=== PATIENT | male | born 1980 | race African-American/Black ===

== ENCOUNTER 2020-02-27 08:30 | Inpatient (IN) | payer MEDICAID ==
[~2020-02-27] VITALS: Ht 188 cm; Wt 86.2 kg
[2020-02-27 08:35] VITALS: BP 107/81
[2020-02-27] MEDS ORDERED: EPINEPHrine 1mg/1ml Amp ONE ×2 (08:35→08:54)
[2020-02-27] MEDS ORDERED: Solu-MEDROL 125mg Inj ONE (08:35)
[2020-02-27] MEDS ORDERED: Albuterol/Ipratropium 3ml neb ONE ×2 (08:37→08:55)
--- NOTE | 2020-02-27 08:59 | Emergency Room Report ---
History of Present Illness General Chief Complaint: Dyspnea/Respdistress Source: EMS Present Illness HPI Disclaimer: Please note that this report is being documented using DRAGON technology. This can lead to erroneous entry secondary to incorrect interpretation by the dictating instrument. HPI: Ambrocio Brooks unknown age presents for respiratory distress. EMS called to bus as he was having shortness of breath. Patient signified he was having allergic reaction. Also had an albuterol inhaler with him. EMS noted wheezing, diaphoresis, tachycardia concern for anaphylaxis they gave intramuscular epi 0.5 mg and breathing treatments en route. Mild improvement. Presents respiratory extremis. Cannot obtain any further information. PMH: Unable to obtain PSH: Unable to obtain Allergies: Unable to obtain Social Hx: Unable to obtain Allergies: Coded Allergies: UNABLE TO ASSESS (Unverified , 02/27/20) COVID-19 Screening Contact w/high risk pt: No Experienced COVID-19 symptoms?: No COVID-19 Testing performed DIRECTOR HOME HEALTH: No Nursing Documentation-PMH Past Medical History: No Stated History Review of Systems All Other Systems: limited - Due to clinical condition Physical Exam Vital Signs Date Time Temp Pulse Resp B/P (MAP) Pulse Ox O2 Delivery O2 Flow Rate FiO2 02/27/20 08:32 95.0 130 30 107/81 (90) 93 Bi-pap General: Awake, respiratory extremis HEENT: NC/AT. EOMI. Cardiovascular: Tachycardic Resp: Increased work of breathing. Profound wheezing bilaterally. Abdomen: Abdomen is soft, nondistended. Nontender Skin: Diffuse urticaria over extremities, lower back, buttocks MSK: Normal tone and bulk. Moving all extremities. No obvious deformity. Neuro: Awake. GCS 8 Procedures Critical Care Time Critical Care Time Total critical care time: Approximately 45 minutes Due to a high probability of clinically significant, life threatening deterioration, the patient required the highest level of preparedness to intervene emergently and I personally spent this critical care time directly and personally managing the patient. This critical care time included obtaining a history, examining the patient, pulse oximetry, ordering and reviewing studies, ordering treatments, evaluating response to treatment and updating management plan as needed, frequent reassessment and discussion with other providers as well as arranging for ultimate disposition. This critical to care time was performed to assess and manage the high probability of life-threatening deterioration that could result in multiorgan failure. This critical care time is separate from the separately billable procedures and treating other patients. Intubation Intubation : Consent: Emergent Intubation Method: orotracheal Tube Size (cm): 7.5 Medications: Etomidate, Rocuronium Breath Sounds after Intubation: equal Intubation Complications: no complications Post Intubation Xray: Yes Attempts: One Patient Tolerated: Well Complications: None Medical Decision Making Diagnostic Impression: Primary Impression: Anaphylactic reaction Additional Impression: Respiratory distress ER Course Ambrocio Brooks presents in respiratory extremis. Possible anaphylactic reaction, PE, overdose. Patient given additional intramuscular epinephrine, Solu-Medrol and continued breathing treatments. He was then started on epinephrine drip. Patient had significant improvement. He was then awake and alert. He became agitated, ripped off his nebulizer, pulled out his IV. He attempted to leave. He was persuaded to stay and then again deteriorated. Wheezing intensified and increased work of breathing. Restarted epinephrine drip though the patient did not significantly improve. Intubated under direct visualization and placed on ventilator. Oxygenation improved to 100%. Continue to receive nebulizers through ET tube. Lactic acid elevated and receiving sepsis fluids. No consolidation visible on x-ray. Admitted to ICU for further care to panel physician, Dr. Robertson EKG Diagnostic Results Troponin ordered: Yes When was troponin ordered?: Feb 27, 2020 EKG Time: 10:18 Rate: tachycardiac Rhythm: NSR Other Impression Sinus tachycardia, normal axis, normal intervals, QTC 425 ms, somewhat peaked T waves. Rhythm Strip Diag. Results Rhythm Strip Time: 10:18 EP Interpretation: yes Rate: 120s Rhythm: NSR, no PVC's, no ectopy Chest X-Ray Diagnostic Results Chest X-Ray Diagnostic Results : Chest X-Ray Ordered: Yes # of Views/Limited/Complete: 1 View Indication: Shortness of Breath Interpretation: no consolidation, no effusion, no pneumothorax, other - Endotracheal tube above the stephen Impression: Other - Satisfactory endotracheal tube placement Electronically Signed by: Electronically signed by Dr. Clifford Masterson MD Last Vital Signs Date Time Temp Pulse Resp B/P (MAP) Pulse Ox O2 Delivery O2 Flow Rate FiO2 02/27/20 08:32 95.0 130 30 107/81 (90) 93 Bi-pap Disposition: ADMITTED INPATIENT Condition: Critical Scripts Unable to Obtain Active Prescriptions or Reported Meds Clifford Masterson MD Feb 27, 2020 08:59
[2020-02-27 09:09] LABS: BASOPHILS % (AUTO) 1.3 % (0.0-2.0); EOSINOPHILS % (AUTO) 0.1 % (0.0-3.0); HEMATOCRIT 54.8 % (42.0-52.0); HEMOGLOBIN 16.4 G/DL (14.2-18.0); LYMPHOCYTES % (AUTO) 49.4 % (20.0-45.0); MEAN CORPUSCULAR VOLUME 95 FL (80-99); MONOCYTES % (AUTO) 3.2 % (1.0-10.0); PLATELET COUNT 334 K/UL (150-450); RED BLOOD COUNT 5.76 M/UL (4.70-6.10); RED CELL DISTRIBUTION WIDTH 14.5 % (11.6-14.8); WHITE BLOOD COUNT 7.9 K/UL (4.8-10.8)
[2020-02-27 09:30] LABS: ALANINE AMINOTRANSFERASE 61 U/L (12-78); ALBUMIN 3.5 G/DL (3.4-5.0); ALBUMIN/GLOBULIN RATIO 0.6 (1.0-2.7); ALKALINE PHOSPHATASE 77 U/L (46-116); ASPARTATE AMINO TRANSFERASE 60 U/L (15-37); BILIRUBIN,TOTAL 0.4 MG/DL (0.2-1.0); BLOOD UREA NITROGEN 21 mg/dL (7-18); CALCIUM 8.6 MG/DL (8.5-10.1); CARBON DIOXIDE 24 MMOL/L (21-32); CKMB 13.8 NG/ML (0.0-3.6); CREATINE KINASE 859 U/L (26-308); CREATININE 1.3 MG/DL (0.55-1.30)
[2020-02-27] MEDS ORDERED: Sodium Chloride 2,600 ML IVLG ONE (09:45)
[2020-02-27] MEDS: propofoL 1,000mg/100ml 100 ML IV SCH ×3 (09:48→15:00)
[2020-02-27 10:00] LABS: CHLORIDE 97 MMOL/L (98-107); POTASSIUM 3.9 MMOL/L (3.5-5.1); SODIUM 132 MMOL/L (136-145)
[2020-02-27] MEDS ORDERED: EPINEPHrine 1mg/1ml Amp 1 MG in D5W 249 ML IV SCH (10:00)
[2020-02-27] MEDS ORDERED: Solu-MEDROL 125mg Inj IVP ONE (10:00)
[2020-02-27] MEDS ORDERED: EPINEPHrine 1mg/1ml Amp IM ONE ×2 (10:00)
[2020-02-27 10:03] LABS: ANION GAP 11 mmol/L (5-15)
[2020-02-27 10:46] LABS: APPEARANCE,URINE CLEAR; BILIRUBIN, URINE NEGATIVE (NEGATIVE); GLUCOSE, URINE (UA) 4+ (NEGATIVE); KETONES,URINE NEGATIVE (NEGATIVE); LEUKOCYTE ESTERASE ,URINE 1+ (NEGATIVE); PH,URINE 6 (4.5-8.0); PROTEIN,URINE 3+ (NEGATIVE); UROBILINOGEN,URINE NORMAL MG/DL (0.0-1.0)
[2020-02-27 10:55] LABS: NITRITE,URINE NEGATIVE (NEGATIVE)
[2020-02-27 10:56] LABS: COLOR,URINE PINK
[2020-02-27] MEDS ORDERED: EPINEPHRINE IV SCH (11:00)
[2020-02-27] MEDS ORDERED: SODIUM CHLORIDE IV SCH (11:00)
[2020-02-27] MEDS: Heparin 5000 units/ml inj SUBQ SCH ×2 (14:00→22:00)
--- NOTE | 2020-02-27 15:04 | Diagnostic Imaging Report ---
Indication: Respiratory failure Technique: XRAY Chest 1v Comparison: None Findings: Endotracheal tube tip below level of clavicles, approximately 4.5 cm above the stephen. Heart size within normal limits. Mediastinal contours are sharp. There is no focal versus consolidation. No pleural effusion, pneumothorax or radiographic evidence of pulmonary edema. No acute osseous abnormality. IMPRESSION: Endotracheal tube tip below the level of clavicles, approximately 4.5 cm above the stephen. No focal airspace consolidation, pleural effusion or pneumothorax.
--- NOTE | 2020-02-27 15:06 | Diagnostic Imaging Report ---
Indication: Respiratory failure Technique: XRAY Chest 1v Comparison: Earlier the same day (02/27/2028, 9:19) FINDINGS/IMPRESSION: Endotracheal tube is been retracted slightly with the tip still remains the level of the clavicles, approximately 5.5 cm above the stephen. Heart size and mediastinal contours within normal limits and stable compared to the prior exam. No focal consolidation, pleural effusion or pneumothorax.
[2020-02-27] MEDS: Albuterol/Ipratropium 3ml neb IN-LINE SCH ×3 (15:36→22:35)
--- NOTE | 2020-02-27 15:57 | Diagnostic Imaging Report ---
Indication: Respiratory failure Technique: XRAY Chest 1v Comparison: Earlier the same day (02/27/2020, 12:56) FINDINGS/IMPRESSION: Endotracheal tube has been retracted slightly with the tip just at the level of the inferior border of the clavicles, approximately 6.7 cm above the stephen. Heart size and mediastinal contours within normal limits and stable compared to the prior exam. No focal consolidation, pleural effusion or pneumothorax.
[2020-02-27] MEDS ORDERED: Norepinephrine 4mg/NS Premix 250 ML IV SCH (16:15)
[2020-02-27] MEDS: Azithromycin 500 MG in D5W 275 ML IV SCH (16:27)
[2020-02-27 17:10] LABS: ALBUMIN 2.7 G/DL (3.4-5.0); ALBUMIN/GLOBULIN RATIO 0.6 (1.0-2.7); BILIRUBIN,TOTAL 0.3 MG/DL (0.2-1.0); CALCIUM 6.8 MG/DL (8.5-10.1); CREATININE 1.8 MG/DL (0.55-1.30)
[2020-02-27 17:30] LABS: POTASSIUM 5.2 MMOL/L (3.5-5.1)
--- NOTE | 2020-02-27 17:59 | Diagnostic Imaging Report ---
EXAM: XR Chest, 1 View CLINICAL HISTORY: TUBE PLCMT TECHNIQUE: Frontal view of the chest. COMPARISON: Same date 4 hours prior FINDINGS: Lungs: No acute cardiopulmonary disease. Pleural space: Unremarkable. No pneumothorax. Heart: Unremarkable. No cardiomegaly. Mediastinum: Unremarkable. Bones/joints: No acute abnormality Tubes, lines and devices: ETT 3.4 cm above stephen. IMPRESSION: 1. ETT 3.4 cm above stephen. 2. No acute cardiopulmonary disease.
[2020-02-27] MEDS: Solu-MEDROL 125mg Inj IVP SCH (19:06)
[2020-02-27] MEDS: Dyna-Hex 2% Top Sol 2oz TOPIC SCH (19:38)
--- NOTE | 2020-02-27 19:48 | Emergency Room Report ---
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 COVID-19 Screening: Negative COVID-19 Nursing Documentation-[facility] Past Medical History: No Stated History Physical Exam Vital Signs Date Time Temp Pulse Resp B/P (MAP) Pulse Ox O2 Delivery O2 Flow Rate FiO2 02/27/20 08:32 95.0 130 30 107/81 (90) 93 Bi-pap 02/27/20 08:45 100 02/27/20 19:25 4.0 Procedures Central Line Central Line : Consent: Emergent Central Line Lumen: triple Maximal Sterile Barrier Tech: yes cap, yes mask, yes sterile gown, yes sterile gloves, yes large sterile sheet, yes hand hygiene, yes chlorhexidine prep No Max Barrier Tech Because: emergency insertion Central Line Postion: femoral (R) US Guided Line?: Yes Vessel visualized with U/S: Right Femoral Vein Ultrasound Findings: Collapsible Vessel, Vessel Patent, Color flow present, Visualize vessel puncture Complications: none Central Line Post Position: sutured, good blood return Attempts: One Patient Tolerated: Well Complications: None Medical Decision Making Diagnostic Impression: Primary Impression: Anaphylactic reaction Additional Impression: Respiratory distress Last Vital Signs Date Time Temp Pulse Resp B/P (MAP) Pulse Ox O2 Delivery O2 Flow Rate FiO2 02/27/20 19:26 95 18 100 Nasal Cannula 4.0 36 92 16 98 02/27/20 16:48 102/46 02/27/20 08:35 95.0 Disposition: ADMITTED INPATIENT Condition: Critical Scripts Unable to Obtain Active Prescriptions or Reported Meds Referrals: NOT CHOSEN IPA/,REFERRING (PCP) Victor Manuel Hardy M.D. Feb 27, 2020 19:48
--- NOTE | 2020-02-27 21:30 | History and Physical Report ---
DATE OF ADMISSION: 02/27/2020 REASON FOR ADMISSION: Respiratory failure. HISTORY OF PRESENT ILLNESS: This male was on the bus, developed shortness of breath. He stated that he was having an allergic reaction. He uses albuterol inhaler, but did not improve. Paramedics were called. He was given epinephrine in the field with some improvement, but the patient was unable to give any information due to his respiratory distress, and he was initially named as a Ambrocio Brooks. In the emergency room, he was given intravenous steroids and bronchodilators and BiPAP. He initially improved, but subsequently became agitated and attempted to leave the hospital, confused. Later, he required intubation and mechanical ventilation. He was admitted to the intensive care unit. He was also sedated. Subsequently, he was noted to have his endotracheal tube over 6 cm above the stephen and orders were given to correct that positioning. PAST MEDICAL HISTORY: Otherwise unknown. ALLERGIES: Unknown. MEDICATIONS: Unknown other than albuterol. PHYSICAL EXAMINATION: GENERAL: Moderately obese. Orally intubated. Presently sedated, but quite agitated when off his sedation. VITAL SIGNS: Blood pressure 107/81, pulse 130, respirations 30, afebrile. LUNGS: Bilateral breath sounds with expiratory wheezing. HEENT: Thin secretions from the endotracheal tube. SKIN: No skin lesions. HEART: Regular rhythm. Rapid rate. Normal S1, S2. ABDOMEN: Soft and obese. EXTREMITIES: No edema. He moves all extremities. LABORATORY DATA: EKG with sinus tachycardia, no acute abnormalities. Chest x-ray revealed no infiltrate. Endotracheal tube as described above. Lactic acid is 8.7. BUN 21, creatinine 1.3. Sodium 132, potassium 3.9. Troponin #1 is 0.005. White count 7.9, hemoglobin 16.4, and urine tox screen is positive for amphetamines. ABG initially was 7.019, 115, 514 IMPRESSION: 1. Respiratory failure. 2. Acute bronchospasm. 3. Anaphylactic reaction. 4. Amphetamine intoxication. 5. Lactic acidosis. 6. Sinus tachycardia. 7. Acute myocardial ischemia. 8. Hypoxia. 9. Acute respiratory acidosis. PLAN: 1. Ventilator support. 2. Hold antimicrobials. 3. Bronchodilators. 4. Steroids. 5. DVT prophylaxis. 6. IV fluids. 7. Serial lactic acid and ABG studies. 8. Follow up troponin level. 9. Withdrawal precautions. Jh Robertson M.D. DR: JAMI JOB#: [id number] CC:
[2020-02-27] MEDS ORDERED: Rocuronium Bromide 50mg/5ml Inj IV ONE (22:02)
[2020-02-27] MEDS ORDERED: Etomidate 40mg/20ml Inj IV ONE (22:02)
[2020-02-28] VITALS (8 sets, daily range): BP systolic 100–162; BP diastolic 61–106
[2020-02-28] MEDS: Solu-MEDROL 125mg Inj IVP SCH ×3 (00:08→12:06)
[2020-02-28] MEDS: Albuterol/Ipratropium 3ml neb IN-LINE SCH ×6 (02:51→23:00)
[2020-02-28 04:51] LABS: HEMATOCRIT 45.3 % (42.0-52.0); HEMOGLOBIN 14.4 G/DL (14.2-18.0); MEAN CORPUSCULAR VOLUME 91 FL (80-99); PLATELET COUNT 276 K/UL (150-450); RED BLOOD COUNT 4.99 M/UL (4.70-6.10); RED CELL DISTRIBUTION WIDTH 14.2 % (11.6-14.8); WHITE BLOOD COUNT 9.3 K/UL (4.8-10.8)
[2020-02-28 05:04] LABS: ALANINE AMINOTRANSFERASE 55 U/L (12-78); ALBUMIN 2.8 G/DL (3.4-5.0); ALBUMIN/GLOBULIN RATIO 0.6 (1.0-2.7); ALKALINE PHOSPHATASE 57 U/L (46-116); ANION GAP 5 mmol/L (5-15); ASPARTATE AMINO TRANSFERASE 57 U/L (15-37); BILIRUBIN,TOTAL 0.4 MG/DL (0.2-1.0); BLOOD UREA NITROGEN 21 mg/dL (7-18); CALCIUM 7.7 MG/DL (8.5-10.1); CARBON DIOXIDE 28 MMOL/L (21-32); CHLORIDE 106 MMOL/L (98-107); CREATINE KINASE 760 U/L (26-308); CREATININE 1.3 MG/DL (0.55-1.30); POTASSIUM 4.4 MMOL/L (3.5-5.1); SODIUM 138 MMOL/L (136-145)
[2020-02-28] MEDS: Heparin 5000 units/ml inj SUBQ SCH ×3 (06:00→21:05)
--- NOTE | 2020-02-28 08:31 | Diagnostic Imaging Report ---
EXAM: XR Chest, 1 View CLINICAL HISTORY: COPD TECHNIQUE: Frontal view of the chest. COMPARISON: No relevant prior studies available. FINDINGS: Lungs: Unremarkable. No consolidation. Pleural space: Unremarkable. No pneumothorax. Heart: Unremarkable. No cardiomegaly. Mediastinum: Unremarkable. Bones/joints: Unremarkable. IMPRESSION: No focal infiltrate.
--- NOTE | 2020-02-28 09:29 | Pulmonology Progress Note ---
Subjective Allergies: Coded Allergies: UNABLE TO ASSESS (Unverified , 02/27/20) Subjective care noted self extubated off oxygen at present Objective Last 24 Hour Vital Signs Date Time Temp Pulse Resp B/P (MAP) Pulse Ox O2 Delivery O2 Flow Rate FiO2 02/28/20 09:00 99.1 112 23 132/69 (90) 99 02/28/20 08:00 94 17 142/72 (95) 98 02/28/20 07:32 79 14 100 Room Air 21 75 14 99 02/28/20 07:20 99 Room Air 21 02/28/20 07:00 98 19 132/73 (92) 99 02/28/20 04:00 Mechanical Ventilator 02/28/20 03:47 76 18 100 Nasal Cannula 3.0 32 72 16 97 02/28/20 00:00 Mechanical Ventilator 02/27/20 23:02 79 18 100 Nasal Cannula 3.0 32 75 16 97 02/27/20 20:00 Mechanical Ventilator 02/27/20 19:26 95 18 100 Nasal Cannula 4.0 36 92 16 98 02/27/20 19:25 98 Nasal Cannula 4.0 36 02/27/20 17:00 113 24 60 02/27/20 16:48 50 102/46 Mechanical Ventilator 02/27/20 16:15 113/79 02/27/20 16:00 Mechanical Ventilator 02/27/20 15:48 22 80/48 Mechanical Ventilator 02/27/20 15:46 126 24 100 Mechanical Ventilator 60 129 16 60 02/27/20 15:00 40 92/52 Mechanical Ventilator 02/27/20 14:48 35 104/51 Mechanical Ventilator 02/27/20 14:10 80 02/27/20 13:00 132 24 100 02/27/20 12:41 100 02/27/20 11:45 147 27 100 02/27/20 09:48 22 135/50 Mechanical Ventilator Intake and Output 02/27/20 02/28/20 19:00 07:00 Intake Total 1076.710 ml 2300 ml Output Total 515 ml 3850 ml Balance 561.710 ml -1550 ml IV Total 1076.710 ml 2300 ml Output Urine Total 515 ml 3850 ml Objective WDWN NAD clear breath sounds bilaterally without rhonchi or wheeze [id number] without MRG NABS nontender no HSM no CCE nonfocal Microbiology Date/Time Source Procedure Growth Status 11/20/20 11:05 Nasopharynx SARS-CoV-2 RdRp Gene Assay - Final Complete Laboratory Tests 02/27/20 10:08: Arterial Blood pH 7.019*L, Arterial Blood Partial Pressure CO2 115.8*H, Arterial Blood Partial Pressure O2 514.5H, Arterial Blood HCO3 29.2H, Arterial Blood Oxygen Saturation 99.5, Arterial Blood Base Excess -5.9L, Mega Test Positive 02/27/20 10:35: Urine Color [place], Urine Appearance Clear, Urine pH 6, Urine Specific [place] 1.020, Urine Protein 3+H, Urine Glucose (UA) 4+H, Urine Ketones Negative, Urine Blood 4+H, Urine Nitrite Negative, Urine Bilirubin Negative, Urine Urobilinogen Normal, Urine Leukocyte Esterase 1+H, Urine RBC 5-10H, Urine WBC 0-2, Urine Squamous Epithelial Cells Occasional, Urine Bacteria Few, Lactic Acid Level 2.90H, Triglycerides Level 29L, Urine Opiates Screen Negative, Urine Barbiturates Screen Negative, Phencyclidine (PCP) Screen Negative, Urine Amphetamines Screen PositiveH, Urine Benzodiazepines Screen Negative, Urine Cocaine Screen Negative, Urine Marijuana (THC) Screen Negative 02/27/20 13:41: Arterial Blood pH 7.061*L, Arterial Blood Partial Pressure CO2 93.3*H, Arterial Blood Partial Pressure O2 630.2H, Arterial Blood HCO3 25.9, Arterial Blood Oxygen Saturation 99.1, Arterial Blood Base Excess -7.5L, Mega Test Positive 02/27/20 16:20: Urine Opiates Screen Negative, Urine Barbiturates Screen Negative, Phencyclidine (PCP) Screen Negative, Urine Amphetamines Screen PositiveH, Urine Benzodiazepines Screen Negative, Urine Cocaine Screen Negative, Urine Marijuana (THC) Screen PositiveH 02/27/20 16:30: Sodium Level 137, Potassium Level 5.2H, Chloride Level 105, Carbon Dioxide Level 25, Anion Gap 7, Blood Urea Nitrogen 29H, Creatinine 1.8H, Estimat Glomerular Filtration Rate 49.7, Glucose Level 139H, Lactic Acid Level 3.80H, Calcium Level 6.8#L, Magnesium Level 1.6L, Total Bilirubin 0.3, Aspartate Amino Transf (AST/SGOT) 66H, Alanine Aminotransferase (ALT/SGPT) 52, Alkaline Phosphatase 63, Troponin I 0.556H, Total Protein 7.0, Albumin 2.7L, Globulin 4.3, Albumin/Globulin Ratio 0.6L, Triglycerides Level 41, Thyroid Stimulating Hormone (TSH) 0.162L 02/27/20 18:25: Lactic Acid Level 3.70H 02/27/20 18:55: Arterial Blood pH 7.338L, Arterial Blood Partial Pressure CO2 37.4, Arterial B lood Partial Pressure O2 130.9H, Arterial Blood HCO3 19.6L, Arterial Blood Oxygen Saturation 98.2, Arterial Blood Base Excess -5.5L, Mega Test Positive 02/28/20 04:00: Sodium Level 138, Potassium Level 4.4, Chloride Level 106, Carbon Dioxide Level 28, Anion Gap 5, Blood Urea Nitrogen 21H, Creatinine 1.3, Estimat Glomerular Filtration Rate > 60, Glucose Level 124H, Lactic Acid Level 3.70H, Calcium Level 7.7L, Total Bilirubin 0.4, Aspartate Amino Transf (AST/SGOT) 57H, Alanine Aminotransferase (ALT/SGPT) 55, Alkaline Phosphatase 57, Troponin I 0.316H, Total Protein 7.3, Albumin 2.8L, Globulin 4.5, Albumin/Globulin Ratio 0.6L, White Blood Count 9.3, Red Blood Count 4.99, Hemoglobin 14.4, Hematocrit 45.3, Mean Corpuscular Volume 91, Mean Corpuscular Hemoglobin 28.9, Mean Corpuscular Hemoglobin Concent 31.8L, Red Cell Distribution Width 14.2, Platelet Count 276, Mean Platelet Volume 6.3L, Neutrophils (%) (Auto) , Lymphocytes (%) (Auto) , Monocytes (%) (Auto) , Eosinophils (%) (Auto) , Basophils (%) (Auto) , Differential Total Cells Counted 100, Neutrophils % (Manual) 93H, Lymphocytes % (Manual) 7L, Monocytes % (Manual) 0L, Eosinophils % (Manual) 0, Basophils % (Manual) 0, Band Neutrophils 0, Platelet Estimate Adequate, Platelet Morphology Normal, Red Blood Cell Morphology Normal, Anisocytosis , Total Creatine Kinase 760H Current Medications Medications (Trade) Dose Ordered Sig/Tylor Route PRN Reason Start Time Stop Time Status Last Admin Dose Admin Albuterol/ Ipratropium (Albuterol/ Ipratropium) 3 ml Q4HRT IN-LINE 02/27/20 15:00 03/03/20 14:59 02/28/20 07:22 Azithromycin 500 mg/Dextrose 275 ml @ 275 mls/hr Q24HRS IV 02/27/20 14:00 03/04/20 14:59 02/27/20 16:27 Chlorhexidine Gluconate (Esther-Hex 2%) 1 applic DAILY@2000 TOPIC 02/27/20 20:00 05/27/20 19:59 02/27/20 19:38 Heparin Sodium (Porcine) (Heparin 5000 units/ml) 5,000 units EVERY 8 HOURS SUBQ 02/27/20 14:00 04/12/20 13:59 Methylprednisolone Sodium Succinate (Solu-MEDROL) 60 mg EVERY 6 HOURS IVP 02/27/20 18:00 05/27/20 17:59 02/28/20 06:14 Norepinephrine Bitartrate 250 ml @ 0 mls/hr Q24H IV 02/27/20 16:15 03/01/20 16:14 Ondansetron HCl (Zofran) 4 mg Q6H PRN IVP Nausea & Vomiting 02/27/20 12:45 03/28/20 12:44 Sodium Chloride 1,000 ml @ 175 mls/hr Q5H43M IV 02/27/20 12:45 03/28/20 12:44 02/28/20 08:00 Assessment/Plan Assessment/Plan IMPRESSION: 1. Respiratory failure. 2. Acute bronchospasm. 3. Anaphylactic reaction. 4. Amphetamine intoxication. PLAN doing well presently off oxygen CXR clear will sign off please call if any issues Leo Alford MD Feb 28, 2020 09:29
[2020-02-28] MEDS ORDERED: NS 275ml ONE (13:40)
[2020-02-28] MEDS ORDERED: Tubing IV Secondary IV ONE (13:40)
[2020-02-28] MEDS: Azithromycin 500 MG in D5W 275 ML IV SCH (13:53)
--- NOTE | 2020-02-28 15:30 | Consultation ---
DATE OF CONSULTATION: 02/28/2020 REFERRING PHYSICIAN: Jh Robertson M.D. REASON FOR CONSULTATION: Rhabdomyolysis, metabolic acidosis. HISTORY OF PRESENT ILLNESS: The patient presented with an anaphylactic reaction, respiratory distress, placed on a ventilator. He had elevated CPK. He apparently ate a star fruit, which is known to cause anaphylaxis, and he had an abnormal drug screen with positive methamphetamines, which he admits to use, and the patient has elevated CK , electrolytes normal. There was elevated lactic acid. REVIEW OF SYSTEMS: Negative other than he may have HIV, but he does not know for sure. PHYSICAL EXAMINATION: GENERAL: He is alert, well developed, currently in no acute distress. VITAL SIGNS: Temperature 99.1, pulse 112, blood pressure 132/69, sat 99. HEAD, EYES, EARS, NOSE, AND THROAT: Unremarkable. LUNGS: Clear. HEART: Regular rhythm. ABDOMEN: Soft without organomegaly. EXTREMITIES: No edema. IMPRESSION: 1. Anaphylactic reaction. 2. Bronchospasm secondary to above, improved. 3. Respiratory acidosis. 4. Lactic acidosis. 5. Concern for HIV. 6. Rhabdomyolysis. PLAN: The patient is improving with the current treatment and needs to be well hydrated. Orders were reviewed. His renal function so far is stable. Awais Moser M.D. DR: MARISSA JOB#: [id number] CC:
--- NOTE | 2020-02-28 19:48 | Cardiology Progress Note ---
Subjective DATE OF SERVICE: Feb 28, 2020 Self extubated. No respiratory distress or hypoxia. Still with elevated lactic acid levels. Now says he may have HIV, but not sure. Urine tox screen positive for amphetamines. Objective Last 24 Hour Vital Signs Date Time Temp Pulse Resp B/P (MAP) Pulse Ox O2 Delivery O2 Flow Rate FiO2 02/28/20 16:44 105 18 100 Room Air 21 101 20 97 02/28/20 16:00 99.2 113 21 162/106 (124) 97 02/28/20 12:00 Room Air 02/28/20 12:00 98.7 61 20 100/65 (77) 97 02/28/20 11:07 89 02/28/20 11:00 114 24 153/69 (97) 98 02/28/20 10:00 110 21 147/61 (89) 99 02/28/20 09:00 99.1 112 23 132/69 (90) 99 02/28/20 08:00 94 17 142/72 (95) 98 02/28/20 08:00 Room Air 02/28/20 07:32 79 14 100 Room Air 21 75 14 99 02/28/20 07:20 99 Room Air 21 02/28/20 07:00 98 19 132/73 (92) 99 02/28/20 04:00 Mechanical Ventilator 02/28/20 03:47 76 18 100 Nasal Cannula 3.0 32 72 16 97 02/28/20 00:00 Mechanical Ventilator 02/27/20 23:02 79 18 100 Nasal Cannula 3.0 32 75 16 97 02/27/20 20:00 Mechanical Ventilator HEENT: normal ENT inspection RHYTHM: NSR LUNGS: lungs clear bilaterally CARDIAC: normal rate, regular rhythm, normal S1 and S2 ABDOMEN: normal bowel sounds, non tender, soft, no organomegaly EXTREMITIES: normal range of motion, non-tender, other - no skin lesions Laboratory Tests Test 02/28/20 04:00 02/28/20 13:30 02/28/20 15:18 White Blood Count 9.3 K/UL (4.8-10.8) Red Blood Count 4.99 M/UL (4.70-6.10) Hemoglobin 14.4 G/DL (14.2-18.0) Hematocrit 45.3 % (42.0-52.0) Mean Corpuscular Volume 91 FL (80-99) Mean Corpuscular Hemoglobin 28.9 PG (27.0-31.0) Mean Corpuscular Hemoglobin Concent 31.8 G/DL (32.0-36.0) L Red Cell Distribution Width 14.2 % (11.6-14.8) Platelet Count 276 K/UL (150-450) Mean Platelet Volume 6.3 FL (6.5-10.1) L Neutrophils (%) (Auto) % (45.0-75.0) Lymphocytes (%) (Auto) % (20.0-45.0) Monocytes (%) (Auto) % (1.0-10.0) Eosinophils (%) (Auto) % (0.0-3.0) Basophils (%) (Auto) % (0.0-2.0) Differential Total Cells Counted 100 Neutrophils % (Manual) 93 % (45-75) H Lymphocytes % (Manual) 7 % (20-45) L Monocytes % (Manual) 0 % (1-10) L Eosinophils % (Manual) 0 % (0-3) Basophils % (Manual) 0 % (0-2) Band Neutrophils 0 % (0-8) Platelet Estimate Adequate Platelet Morphology Normal Red Blood Cell Morphology Normal Anisocytosis Sodium Level 138 MMOL/L (136-145) Potassium Level 4.4 MMOL/L (3.5-5.1) Chloride Level 106 MMOL/L (98-107) Carbon Dioxide Level 28 MMOL/L (21-32) Anion Gap 5 mmol/L (5-15) Blood Urea Nitrogen 21 mg/dL (7-18) H Creatinine 1.3 MG/DL (0.55-1.30) Estimat Glomerular Filtration Rate > 60 mL/min (>60) Glucose Level 124 MG/DL (74-106) H Lactic Acid Level 3.70 mmol/L (0.4-2.0) H 4.10 mmol/L (0.4-2.0) H 4.80 mmol/L (0.66-2.22) H Calcium Level 7.7 MG/DL (8.5-10.1) L Total Bilirubin 0.4 MG/DL (0.2-1.0) Aspartate Amino Transf (AST/SGOT) 57 U/L (15-37) H Alanine Aminotransferase (ALT/SGPT) 55 U/L (12-78) Alkaline Phosphatase 57 U/L (46-116) Total Creatine Kinase 760 U/L (26-308) H Troponin I 0.316 ng/mL (0.000-0.056) Total Protein 7.3 G/DL (6.4-8.2) Albumin 2.8 G/DL (3.4-5.0) L Globulin 4.5 g/dL Albumin/Globulin Ratio 0.6 (1.0-2.7) L Microbiology Date/Time Source Procedure Growth Status 02/27/20 11:05 Nasopharynx SARS-CoV-2 RdRp Gene Assay - Final Complete Assessment/Plan Assessment/Plan S/P respiratory failure Anaphylactic rxn Amphetamine intox Possible HIV Lactic acidosis Toxic and metabolic encephalopathy Homeless See orders D/W consultants and CM Jh Robertson MD Feb 28, 2020 19:48
[2020-02-28] MEDS: Dyna-Hex 2% Top Sol 2oz TOPIC SCH (21:02)
[2020-02-29] MEDS: Albuterol/Ipratropium 3ml neb IN-LINE SCH ×7 (03:00→23:00)
[2020-02-29 04:00] VITALS: BP 136/92
[2020-02-29] MEDS: Heparin 5000 units/ml inj SUBQ SCH ×3 (05:42→21:48)
[2020-02-29 09:00] VITALS: BP 148/89
[2020-02-29] MEDS ORDERED: Solu-MEDROL 125mg Inj IVP SCH (09:00)
--- NOTE | 2020-02-29 10:16 | Pulmonology Progress Note ---
Subjective Allergies: Coded Allergies: NO KNOWN ALLERGIES (Verified Allergy, Unknown, 02/28/20) Subjective care noted self extubated and stable off oxygen and stable +wheeze Objective Last 24 Hour Vital Signs Date Time Temp Pulse Resp B/P (MAP) Pulse Ox O2 Delivery O2 Flow Rate FiO2 02/29/20 07:56 88 20 100 Room Air 21 84 18 95 02/29/20 07:54 97 Room Air 21 02/29/20 04:00 98.4 81 20 136/92 (107) 95 02/29/20 03:25 85 18 100 Room Air 21 82 20 97 02/28/20 21:00 Room Air 02/28/20 20:00 98.1 89 20 124/66 (85) 97 02/28/20 19:43 98 Room Air 21 02/28/20 16:44 105 18 100 Room Air 21 101 20 97 02/28/20 16:00 99.2 113 21 162/106 (124) 97 02/28/20 12:00 Room Air 02/28/20 12:00 98.7 61 20 100/65 (77) 97 02/28/20 11:07 89 02/28/20 11:00 114 24 153/69 (97) 98 Intake and Output 02/28/20 02/29/20 19:00 07:00 Intake Total 2300 ml 650 ml Output Total 670 ml Balance 1630 ml 650 ml Intake Oral 1600 ml 650 ml IV Total 700 ml Output Urine Total 670 ml # Voids 2 3 Objective WDWN NAD clear breath sounds bilaterally without rhonchi or wheeze [id number] without MRG NABS nontender no HSM no CCE nonfocal Microbiology Date/Time Source Procedure Growth Status 02/27/20 20:20 Sputum Gram Stain - Final Resulted 02/27/20 20:20 Sputum Culture - Preliminary Usual Respiratory Zamzam Resulted 02/27/20 11:05 Nasopharynx SARS-CoV-2 RdRp Gene Assay - Final Complete 02/27/20 08:40 Blood Blood Culture - Preliminary NO GROWTH AFTER 24 HOURS Resulted 02/27/20 08:25 Blood Blood Culture - Preliminary NO GROWTH AFTER 24 HOURS Resulted Laboratory Tests 02/28/20 13:30: Lactic Acid Level 4.10H 02/28/20 15:18: Lactic Acid Level 4.80H Current Medications Medications (Trade) Dose Ordered Sig/Tylor Route PRN Reason Start Time Stop Time Status Last Admin Dose Admin Albuterol/ Ipratropium (Albuterol/ Ipratropium) 3 ml Q4HRT IN-LINE 02/27/20 15:00 03/03/20 14:59 02/29/20 07:46 Azithromycin 500 mg/Dextrose 275 ml @ 275 mls/hr Q24HRS IV 02/27/20 14:00 03/04/20 14:59 02/28/20 13:53 Chlorhexidine Gluconate (Esther-Hex 2%) 1 applic DAILY@2000 TOPIC 02/27/20 20:00 05/27/20 19:59 02/28/20 21:02 Heparin Sodium (Porcine) (Heparin 5000 units/ml) 5,000 units EVERY 8 HOURS SUBQ 02/27/20 14:00 04/12/20 13:59 02/29/20 05:42 Methylprednisolone Sodium Succinate (Solu-MEDROL) 60 mg DAILY IVP 02/29/20 09:00 05/29/20 08:59 02/29/20 09:24 Ondansetron HCl (Zofran) 4 mg Q6H PRN IVP Nausea & Vomiting 02/27/20 12:45 03/28/20 12:44 Sodium Chloride 1,000 ml @ 175 mls/hr Q5H43M IV 02/27/20 12:45 03/28/20 12:44 02/29/20 07:03 Assessment/Plan Assessment/Plan IMPRESSION: 1. Respiratory failure. 2. Acute bronchospasm. 3. Anaphylactic reaction. 4. Amphetamine intoxication. 5. wheeze PLAN albuterol PRN robitussin monitor presently off oxygen CXR clear impression, plan, and exam edited and reviewed in detail care discussed with Leo Darden MD Feb 29, 2020 10:15
[2020-02-29] MEDS ORDERED: guaiFENesin 100mg/5ml Liq ud ORAL PRN (10:30)
[2020-02-29 11:07] LABS: BASOPHILS % (AUTO) 0.9 % (0.0-2.0); EOSINOPHILS % (AUTO) 0.2 % (0.0-3.0); HEMATOCRIT 42.2 % (42.0-52.0); HEMOGLOBIN 13.5 G/DL (14.2-18.0); LYMPHOCYTES % (AUTO) 25.9 % (20.0-45.0); MEAN CORPUSCULAR VOLUME 91 FL (80-99); MONOCYTES % (AUTO) 12.1 % (1.0-10.0); NEUTROPHILS % (AUTO) 60.9 % (45.0-75.0); PLATELET COUNT 247 K/UL (150-450); RED BLOOD COUNT 4.65 M/UL (4.70-6.10); RED CELL DISTRIBUTION WIDTH 14.2 % (11.6-14.8); WHITE BLOOD COUNT 7.5 K/UL (4.8-10.8)
[2020-02-29 11:31] LABS: ALANINE AMINOTRANSFERASE 45 U/L (12-78); ALBUMIN 2.5 G/DL (3.4-5.0); ALBUMIN/GLOBULIN RATIO 0.6 (1.0-2.7); ALKALINE PHOSPHATASE 60 U/L (46-116); ANION GAP 6 mmol/L (5-15); ASPARTATE AMINO TRANSFERASE 42 U/L (15-37); BILIRUBIN,TOTAL 0.3 MG/DL (0.2-1.0); BLOOD UREA NITROGEN 20 mg/dL (7-18); CALCIUM 7.6 MG/DL (8.5-10.1); CARBON DIOXIDE 27 MMOL/L (21-32); CHLORIDE 105 MMOL/L (98-107); POTASSIUM 3.8 MMOL/L (3.5-5.1); SODIUM 138 MMOL/L (136-145)
[2020-02-29 12:00] VITALS: BP 152/95
[2020-02-29] MEDS: Azithromycin 500 MG in D5W 275 ML IV SCH (14:29)
[2020-02-29 16:00] VITALS: BP 158/107
--- NOTE | 2020-02-29 17:32 | Cardiology Progress Note ---
Subjective DATE OF SERVICE: Feb 29, 2020 HIV test is positive. No respiratory distress or hypoxia; wheezing at times. Lactic acid levels have now normalized. Urine tox screen positive for amphetamines. Objective Last 24 Hour Vital Signs Date Time Temp Pulse Resp B/P (MAP) Pulse Ox O2 Delivery O2 Flow Rate FiO2 02/29/20 16:06 92 18 100 Room Air 21 94 20 97 02/29/20 16:00 97.6 114 22 158/107 (124) 97 02/29/20 12:00 98.8 93 21 152/95 (114) 97 02/29/20 11:55 77 18 100 Room Air 21 79 18 96 02/29/20 09:00 98.5 100 21 148/89 (108) 99 02/29/20 09:00 Room Air 02/29/20 07:56 88 20 100 Room Air 21 84 18 95 02/29/20 07:54 97 Room Air 21 02/29/20 04:00 98.4 81 20 136/92 (107) 95 02/29/20 03:25 85 18 100 Room Air 21 82 20 97 02/28/20 21:00 Room Air 02/28/20 20:00 98.1 89 20 124/66 (85) 97 02/28/20 19:43 98 Room Air 21 HEENT: normal ENT inspection RHYTHM: NSR LUNGS: lungs clear bilaterally CARDIAC: normal rate, regular rhythm, normal S1 and S2 ABDOMEN: normal bowel sounds, non tender, soft, no organomegaly EXTREMITIES: normal range of motion, non-tender, other - no skin lesions Laboratory Tests Test 02/29/20 00:00 02/29/20 10:25 HIV-1 Antibody Pending HIV-2 Antibody Pending White Blood Count 7.5 K/UL (4.8-10.8) Red Blood Count 4.65 M/UL (4.70-6.10) L Hemoglobin 13.5 G/DL (14.2-18.0) L Hematocrit 42.2 % (42.0-52.0) Mean Corpuscular Volume 91 FL (80-99) Mean Corpuscular Hemoglobin 29.1 PG (27.0-31.0) Mean Corpuscular Hemoglobin Concent 32.0 G/DL (32.0-36.0) Red Cell Distribution Width 14.2 % (11.6-14.8) Platelet Count 247 K/UL (150-450) Mean Platelet Volume 6.4 FL (6.5-10.1) L Neutrophils (%) (Auto) 60.9 % (45.0-75.0) Lymphocytes (%) (Auto) 25.9 % (20.0-45.0) Monocytes (%) (Auto) 12.1 % (1.0-10.0) H Eosinophils (%) (Auto) 0.2 % (0.0-3.0) Basophils (%) (Auto) 0.9 % (0.0-2.0) Sodium Level 138 MMOL/L (136-145) Potassium Level 3.8 MMOL/L (3.5-5.1) Chloride Level 105 MMOL/L (98-107) Carbon Dioxide Level 27 MMOL/L (21-32) Anion Gap 6 mmol/L (5-15) Blood Urea Nitrogen 20 mg/dL (7-18) H Creatinine 1.0 MG/DL (0.55-1.30) Estimat Glomerular Filtration Rate > 60 mL/min (>60) Glucose Level 94 MG/DL (74-106) Lactic Acid Level 1.80 mmol/L (0.4-2.0) Calcium Level 7.6 MG/DL (8.5-10.1) L Magnesium Level 1.6 MG/DL (1.8-2.4) L Total Bilirubin 0.3 MG/DL (0.2-1.0) Aspartate Amino Transf (AST/SGOT) 42 U/L (15-37) H Alanine Aminotransferase (ALT/SGPT) 45 U/L (12-78) Alkaline Phosphatase 60 U/L (46-116) Total Protein 6.7 G/DL (6.4-8.2) Albumin 2.5 G/DL (3.4-5.0) L Globulin 4.2 g/dL Albumin/Globulin Ratio 0.6 (1.0-2.7) L HIV (1&2) Antibody Rapid Preliminary positive Microbiology Date/Time Source Procedure Growth Status 02/27/20 20:20 Sputum Gram Stain - Final Resulted 02/27/20 20:20 Sputum Culture - Preliminary Usual Respiratory Zamzam Resulted 02/27/20 11:05 Nasopharynx SARS-CoV-2 RdRp Gene Assay - Final Complete 02/27/20 08:40 Blood Blood Culture - Preliminary NO GROWTH AFTER 24 HOURS Resulted 02/27/20 08:25 Blood Blood Culture - Preliminary NO GROWTH AFTER 24 HOURS Resulted Assessment/Plan Assessment/Plan S/P respiratory failure Anaphylactic rxn Amphetamine intox HIV positive Lactic acidosis Toxic and metabolic encephalopathy Hypertension Homeless See orders D/W consultants and CM Jh Robertson MD Feb 29, 2020 17:32
[2020-02-29 18:30] VITALS: BP 141/94
[2020-02-29 20:00] VITALS: BP 140/78
[2020-02-29] MEDS: Dyna-Hex 2% Top Sol 2oz TOPIC SCH (20:00)
--- NOTE | 2020-02-29 20:43 | Cardiology Report ---
APPROVED REPORT EKG Measurement Heart [id number] <Conclusion> Sinus tachycardia Nonspecific T wave abnormality Abnormal ECG
[2020-03-01] VITALS: BP 147/97
[2020-03-01] MEDS: Albuterol/Ipratropium 3ml neb IN-LINE SCH ×3 (03:02→11:46)
[2020-03-01 04:00] VITALS: BP 149/94
[2020-03-01] MEDS: Heparin 5000 units/ml inj SUBQ SCH ×2 (05:43→14:00)
[2020-03-01 08:00] VITALS: BP 165/104
[2020-03-01] MEDS ORDERED: Solu-MEDROL 40mg Inj IVP SCH (09:00)
[2020-03-01 12:00] VITALS: BP 152/102
--- NOTE | 2020-03-01 12:01 | Pulmonology Progress Note ---
Subjective Allergies: Coded Allergies: NO KNOWN ALLERGIES (Verified Allergy, Unknown, 02/28/20) Subjective care noted self extubated and stable off oxygen and stable +wheeze Objective Last 24 Hour Vital Signs Date Time Temp Pulse Resp B/P (MAP) Pulse Ox O2 Delivery O2 Flow Rate FiO2 03/01/20 11:47 80 18 100 Room Air 21 79 18 96 03/01/20 09:00 Room Air 03/01/20 08:36 84 165/104 03/01/20 08:00 98.4 84 19 165/104 (124) 98 03/01/20 07:45 98 Room Air 21 03/01/20 07:45 78 18 100 Room Air 21 76 18 100 03/01/20 04:00 98.1 87 20 149/94 (112) 96 87 03/01/20 03:04 80 18 100 Room Air 21 77 18 97 03/01/20 00:00 97.9 63 20 147/97 (114) 97 63 02/29/20 21:00 Room Air 02/29/20 20:00 98.4 100 20 140/78 (98) 98 100 02/29/20 19:42 98 Room Air 21 02/29/20 18:30 115 141/94 (110) 105 02/29/20 17:35 114 158/107 02/29/20 16:06 92 18 100 Room Air 21 94 20 97 02/29/20 16:00 97.6 114 22 158/107 (124) 97 Intake and Output 02/29/20 03/01/20 19:00 07:00 Intake Total 1260 ml 500 ml Output Total 1200 ml 1600 ml Balance 60 ml -1100 ml Intake Oral 1260 ml 500 ml Output Urine Total 1200 ml 1600 ml # Voids 1 3 Objective WDWN NAD clear breath sounds bilaterally without rhonchi or wheeze [id number] without MRG NABS nontender no HSM no CCE nonfocal Microbiology Date/Time Source Procedure Growth Status 02/27/20 20:20 Sputum Gram Stain - Final Complete 02/27/20 20:20 Sputum Sputum Culture - Final NORMAL UPPER RESPIRATORY KLEVER PRESENT Complete Current Medications Medications (Trade) Dose Ordered Sig/Tylor Route PRN Reason Start Time Stop Time Status Last Admin Dose Admin Albuterol/ Ipratropium (Albuterol/ Ipratropium) 3 ml Q4HRT IN-LINE 02/27/20 15:00 11/25/20 14:59 03/01/20 11:46 Amlodipine Besylate (Norvasc) 5 mg DAILY ORAL 02/29/20 17:30 03/30/20 17:29 03/01/20 08:36 Chlorhexidine Gluconate (Esther-Hex 2%) 1 applic DAILY@2000 TOPIC 02/27/20 20:00 05/27/20 19:59 02/29/20 20:00 Guaifenesin (Robitussin) 100 mg Q4H PRN ORAL For Cough 02/29/20 10:30 05/29/20 10:29 Heparin Sodium (Porcine) (Heparin 5000 units/ml) 5,000 units EVERY 8 HOURS SUBQ 02/27/20 14:00 04/12/20 13:59 03/01/20 05:43 Methylprednisolone Sodium Succinate (Solu-MEDROL) 40 mg DAILY IVP 03/01/20 09:00 05/30/20 08:59 03/01/20 08:36 Ondansetron HCl (Zofran) 4 mg Q6H PRN IVP Nausea & Vomiting 02/27/20 12:45 03/28/20 12:44 Sodium Chloride 1,000 ml @ 175 mls/hr Q5H43M IV 02/27/20 12:45 03/28/20 12:44 03/01/20 08:36 Assessment/Plan Assessment/Plan IMPRESSION: 1. Respiratory failure. 2. Acute bronchospasm. 3. Anaphylactic reaction. 4. Amphetamine intoxication. 5. wheeze 6. HIV PLAN albuterol PRN robitussin monitor presently off oxygen CXR presently clear impression, plan, and exam edited and reviewed in detail care discussed with Leo Darden MD Mar 01, 2020 12:01
--- NOTE | 2020-03-01 13:59 | Consultation ---
DATE OF CONSULTATION: 03/01/2020 INFECTIOUS DISEASES CONSULTATION CONSULTING PHYSICIAN: Ashleigh Williamson MD. REFERRING PHYSICIAN: Jh Robertson MD. REASON FOR CONSULTATION: Allergic reaction. HISTORY OF PRESENTING ILLNESS: This is a 39-year-old gentleman with history of COPD, who states he had some dragon fruit and subsequently passed out. He had some shortness of breath before passing out. He usually uses an albuterol inhaler, but it did not improve. He was brought in with respiratory distress. He was on a BiPAP and subsequently was intubated, then he subsequently pulled his tube out and now he feels fine and Infectious Diseases consultation has been obtained for an allergic reaction. PAST MEDICAL HISTORY: History of COPD. SOCIAL HISTORY: He does not smoke. He drinks alcohol. No history of drug use. FAMILY HISTORY: Noncontributory. REVIEW OF SYSTEMS: RESPIRATORY: No fever or chills. No cough. He did have shortness of breath. No chest pain. CARDIAC: No chest pain. No palpitation. No dizziness. He had syncope. GASTROINTESTINAL: No nausea. No vomiting. No abdominal pain or diarrhea. MEDICATIONS: As an inpatient, he is on Solu-Medrol, amlodipine, Robitussin, chlorhexidine gluconate, albuterol ipratropium, subcutaneous heparin, azithromycin, Zofran. ALLERGIES: No known drug allergies. PHYSICAL EXAMINATION: VITAL SIGNS: Temperature of 98.4, T-max of 98.8, pulse of 84, respiratory rate of 19, blood pressure 165/104, O2 saturation of 98%. HEENT: Pupils equally reactive to light and accommodation. Mouth appears clean without thrush. NECK: supple. No adenopathy. No JVD. CARDIOVASCULAR: Regular rate and rhythm. No murmurs. LUNGS: Clear to auscultation bilaterally. No crackles. No wheezes. ABDOMEN: Soft, nontender. No organomegaly. EXTREMITIES: No cyanosis, no clubbing, no edema. Right groin catheter noted. LABORATORY DATA: White count 7.5, hemoglobin 13.5, hematocrit 42.2, MCV 91, platelet count of 247, with neutrophils of 60.9%. Sodium 138, potassium 3.8, chloride 105, bicarb 27, BUN 20, creatinine 1, glucose 94, calcium 7.6, magnesium 1.6. Total bilirubin 0.3. AST 42, ALT 45, alkaline phosphatase 60, total protein 6.7, albumin 2.5. UA showing 0 to 2 white cells. HIV test is preliminarily positive. Blood cultures are negative. On 02/27/2020, COVID-19 test is negative. Sputum culture showing normal antony. Chest x-ray is showing no focal infiltrate. ASSESSMENT: This is a 39-year-old gentleman with history of COPD, who comes in after eating dragon fruit and developing shortness of breath and syncope and was found to have. 1. Allergic reaction with respiratory failure that has resolved. 2. Preliminarily new positive HIV. PLAN: 1. We will order a T-cell count. 2. Discontinue azithromycin. 3. Continue steroids. 4. We will follow up the patient clinically. I would like to thank, Dr. Robertson, for this consultation. Ashleigh Williamson M.D. DR: TERRENCE JOB#: [id number] CC: Jh Robertson MD.
[2020-03-01] MEDS ORDERED: NS 275ml ONE (14:34)
[2020-03-01] MEDS ORDERED: Tubing IV Secondary IV ONE ×2 (14:34)
--- NOTE | 2020-03-03 08:30 | Discharge Summary ---
Discharge Summary Discharge Summary _ DATE OF ADMISSION: 02/27/2020 DATE OF DISCHARGE: [] 03/01/2020 DISCHARGED BY: Dr. Robertson REASON FOR ADMISSION: [] 39 years old male was on the bus when he developed shortness of breath patient reported he was having allergic reaction. Patient had albuterol inhaler with him. Paramedics noted wheezing, diaphoresis, cough tachycardia they were concerned for anaphylactic reaction and gave him intramuscular epinephrine and breathing treatment in route to the hospital with mild improvement. Patient presented with respiratory distress. Initially unable to say his name he was tachycardic with a heart rate 130 and tachypneic with respiratory rate 30 patient was hypoxic and required initially BiPAP. Subsequently patient was orally intubated to ICU for further management. Patient presented with respir atory distress possible anaphylactic reaction versus overdose versus PE. Patient received additional intramuscular epinephrine Solu-Medrol and continuous breathing treatment. Patient started on epinephrine drip. Patient had significant improvement however he became agitated ripped off his nebulizer pulled out his IV and attempted to leave.. Patient was persuaded to start to stay later he deteriorated again revisited intensify his work of breathing. The drip was restarted but patient did not improve significantly. Patient subsequently was intubated oxygenation improved to 100%. Patient continued to have a nebulizer through ET tube. Patient admitted to ICU for further management. Laboratory work-up revealed no leukocytosis stable hemoglobin hematocrit and platelet count. Of note ABG showed respiratory acidosis lactic acid 8.7 repeated 2.9 troponin negative sodium 132 chloride 97 potassium 3.9. Glucose 201. BUN 21, creatinine 1.3. Stable AST 60 ALT 61 total CK 859 proBNP 88. Urine toxicology screen was positive for amphetamine. Serum alcohol less than 3 urinalysis revealed +3 protein +4 glucose no evidence of urinary tract infection. Patient admitted to ICU for further management CONSULTANTS: [facility] neurologist pulmonary Dr. Alford ID specialist Dr. Williamson GI specialist inspector aluminum boat gas main fitter/oncologist surgery psychiatrist HOSPITAL COURSE: [] Patient admitted to ICU. Ventilator support and pulmonary toilet provided patient started on the steroids. DVT prophylaxis provided. Patient started on the IV hydration antibiotics were hold. Patient was follow-up with a serial lactic acid levels and ABG. Troponin was followed withdrawal precaution maintain patient self extubated herself ABG after self extubation was better and antitussive provided as needed. Supplemental oxygen provided and titrated to keep pulse oximetry above 92%. Patient was second troponin was elevated and started to trend down. Patient did not complain of any chest pain. Patient was on day IV steroids which tapered down blood pressure was managed with calcium channel cyndy renal parameters electrolytes were closely monitored electrol ytes corrected as needed nephrotoxic's were avoided patient developed acute kidney injury with a creatinine ~1.8 which resolved with IV hydration creatinine down to 1.0 prior to discharge lactic acid down to 1.8 magnesium was replaced troponin trending down Patient was follow-up with a chest x-ray in the last chest x-ray was stable Patient is restarted on empiric antibiotic as per ID specialist recommendation last chest x-ray clear antibiotic stopped rapid HIV test was positive patient was advised to follow-up with the HIV clinic for further management. Patient clinically stabilized with ready for discharge. Homeless discharge the treating physician had assessed and agreed that patient was medically stable for discharge to an outpatient disposition.m FINAL DIAGNOSES: 1. [] Acute hypoxemic hypercapnic respiratory failure requiring intubation, status post extubation Toxic and metabolic encephalopathy Anaphylactic reaction Amphetamine intoxication Lactic acidosis Acute myocardial ischemia Hypertension Homeless DISCHARGE MEDICATIONS: See Medication Reconciliation list. DISCHARGE INSTRUCTIONS: [] I have been assigned to dictate discharge summary for this account. I was not involved in the patient's management. Laura Allred NP Mar 03, 2020 08:30
== END 2020-03-01 14:35 | disposition other institution (70) | DRG 811 ==
LOC: EDBD 08:30 → EMR 08:50 → EDBD 09:18 → ICU 09:18 → EDBEDREQ 10:36 → 3E 02-28 11:50
PROC: 5A1935Z Respiratory Ventilation, Less than 24 Consecutive Hours (ICD-10-PCS; principal; 2020-02-27)
PROC: 0BH17EZ Insertion of Endotracheal Airway into Trachea, Via Natural or Artificial Opening (ICD-10-PCS; 2020-02-27)
PROC: 06HM33Z Insertion of Infusion Device into Right Femoral Vein, Percutaneous Approach (ICD-10-PCS; 2020-02-27)
DX: T78.04XA Anaphylactic reaction due to fruits and vegetables, initial encounter (principal); G92 Toxic encephalopathy; J96.02 Acute respiratory failure with hypercapnia; J96.01 Acute respiratory failure with hypoxia; F15.129 Other stimulant abuse with intoxication, unspecified; I24.8 Other forms of acute ischemic heart disease; J98.01 Acute bronchospasm; E87.2 Acidosis; M62.82 Rhabdomyolysis; I51.3 Intracardiac thrombosis, not elsewhere classified; I10 Essential (primary) hypertension; Z59.0 Homelessness; J44.9 Chronic obstructive pulmonary disease, unspecified
CPT/HCPCS: 31500; 36415; 71045; 80053; 80307; 81003; 82550; 82553; 82803; 83605; 83690; 83735; 83880; 84100; 84443; 84478; 84484; 85007; 85025; 86689; 86703; 87040; 87070; 87205; 93005; 94002; 94003; 94640; 94664; 96365; 96372; 96375; 99291; G0480; J7030; J7620; U0002